=== PATIENT | male | born 1950 | race Two or more races ===

== ENCOUNTER 2018-01-08 11:01 | Outpatient (CLI) | payer OTHER | END 2018-01-08 11:14 | disposition home or self-care (01) | LOC: TOM 11:01 | DX: C61 Malignant neoplasm of prostate (principal) ==

== ENCOUNTER 2018-01-13 07:06 | Outpatient (CLI) | payer OTHER | END 2018-01-13 07:32 | disposition home or self-care (01) | LOC: NUCLEAR 07:06 | DX: C61 Malignant neoplasm of prostate (principal) | CPT/HCPCS: 78306; 78320; A9503 ==

== ENCOUNTER 2018-01-22 08:15 | Inpatient (IN) | payer OTHER ==
[~2018-01-22] VITALS: Ht 167.6 cm; Wt 64.9 kg
== END 2018-02-01 11:58 | disposition home or self-care (01) | DRG 707 ==
LOC: SURH 01-27 05:35 → O/R 01-27 05:35 → SURH 01-27 08:15
PROVIDERS: Urology
PROC: 07TC0ZZ Resection of Pelvis Lymphatic, Open Approach (ICD-10-PCS; 2018-01-27)
PROC: 30233H0 Transfusion of Autologous Whole Blood into Peripheral Vein, Percutaneous Approach (ICD-10-PCS; 2018-01-27)
PROC: 0VT00ZZ Resection of Prostate, Open Approach (ICD-10-PCS; principal; 2018-01-27 13:15)
PROC: 30233N1 Transfusion of Nonautologous Red Blood Cells into Peripheral Vein, Percutaneous Approach (ICD-10-PCS; 2018-01-28)
PROC: BW25ZZZ Computerized Tomography (CT Scan) of Chest, Abdomen and Pelvis (ICD-10-PCS; 2018-01-30)
DX: C61 Malignant neoplasm of prostate (principal); D62 Acute posthemorrhagic anemia; N99.840 Postprocedural hematoma of a genitourinary system organ or structure following a genitourinary system procedure; J90 Pleural effusion, not elsewhere classified

== ENCOUNTER 2018-02-27 13:22 | Outpatient (CLI) | payer OTHER | END 2018-02-27 13:23 | disposition home or self-care (01) | LOC: SONOGRAMA 13:22 | DX: C61 Malignant neoplasm of prostate (principal); R31.29 Other microscopic hematuria ==

== ENCOUNTER 2018-02-27 14:35 | Outpatient (CLI) | payer OTHER | END 2018-02-27 14:40 | disposition home or self-care (01) | LOC: LAB 14:35 | DX: C61 Malignant neoplasm of prostate (principal); R30.0 Dysuria; R82.8 Abnormal findings on cytological and histological examination of urine ==

== ENCOUNTER 2019-04-16 06:46 | Day surgery (SDC) | payer OTHER ==
[2019-04-16] MEDS ORDERED: TYLENOL ARTHRI650 MG PO (11:27)
[2019-04-16] MEDS ORDERED: NEURONTIN300 MG PO (11:27)
[2019-04-16] MEDS ORDERED: ULTRAM50 MG PO (11:27)
[2019-04-16] MEDS ORDERED: MIRALAX17 GM PO (11:27)
== END 2019-04-16 15:30 | disposition home or self-care (01) ==
LOC: CIR.AMB 06:46
DX: K40.90 Unilateral inguinal hernia, without obstruction or gangrene, not specified as recurrent (principal); K42.9 Umbilical hernia without obstruction or gangrene

== ENCOUNTER 2019-09-24 08:36 | Day surgery (SDC) | payer OTHER ==
[~2019-09-24 08:36] MED LIST: MIRALAX17 GM PO; NEURONTIN300 MG PO; TYLENOL ARTHRI650 MG PO; ULTRAM50 MG PO
[2019-09-24] MEDS ORDERED: ULTRAM50 MG PO (12:42)
[2019-09-24] MEDS ORDERED: TYLENOL ARTHRI650 MG PO (12:42)
[2019-09-24] MEDS ORDERED: MIRALAX17 GM PO (12:42)
== END 2019-09-24 17:30 | disposition home or self-care (01) ==
LOC: CIR.AMB 08:36
PROVIDERS: ATTEND Surgery
DX: K40.91 Unilateral inguinal hernia, without obstruction or gangrene, recurrent (principal)